=== PATIENT | female | born 1960 | race Caucasian/White ===

== ENCOUNTER → 2017-09-21 | Outpatient (CLI) | payer MEDICAID ==
[~2017-09-21] MED LIST: ALBUTEROL; ALI300PT PO; AMLO1TAB PO; AMLO2.5T75 PO; ASP325 PO; ATR10 PO; CIPR-326 PO; CIPR-344 PO; CITA-128 PO; CLI150 PO; CLO75 PO; CYC10 PO; ENAL20TA99 PO; FLAX100042 PO; FLUC150T40 PO; FOL1 PO; GABA-503 PO; GEMF600T91 PO; GLUC750T10 PO; GLY5 PO; HUMALOG; HYDR-4309 PO; INSU100C12 SQ; INSU100I30 SQ; LAMO100T5 PO; LAMO100T52 PO; LANI SUBQ; LEVO-85 PO; LEVO175T42 PO; LEVO200T44 PO; LOR5 PO; LOR5/325 PO; MELO-149 PO; METF-420 PO; METO-1 PO; METO-257 PO; METO1TAB PO; MULT-820 PO; NIA100 PO; NITR0.4T3 SL; OMEP40CA45 PO; PAN20 PO; PER PO; POTA-28 PO; PRAV20TA66 PO; PREDNISONE; ROS10 FT; SIMV-49 PO; SITA100T9 PO; SPIR1TAB26 PO; SPIR25TA78 PO; VILA20TA PO; VILA40TA PO; [UNRECOGNIZED DRUG - CODE] PO; [UNRECOGNIZED DRUG - CODE] PO; [UNRECOGNIZED DRUG - OTHER]
--- NOTE | 2017-09-21 17:19 | RADIOLOGY IMAGING REPORT ---
[place] [facility] [place] NAME: Thea Snyder : 1960 MR: [id number] V: [id number] EXAM DATE: ORDERING PHYSICIAN: DEACON CAICEDO TECHNOLOGIST: Location: [facility] Patient: Thea Snyder : 1960 Visit/Account:[id number] Date of Sevice: 09/21/2017 EXAMINATION: VENOUS DOPP LOW LEFT EXTREMITY COMPARISON: None Available HISTORY: Left lower extremity pain and edema. FINDINGS: Standard left lower extremity Doppler ultrasound with color flow and spectral analysis is p erformed. The common femoral, femoral, and popliteal veins are widely patent and compress appropriately. The v isualized calf veins and the proximal greater saphenous vein are patent. No popliteal fluid collection. IMPRESSION: No left lower extremity deep venous thrombosis. Report Dictated By: Gordo Reyes MD at 09/21/2017 5:14 PM Report E-Signed By: Gordo Reyes MD at 09/21/2017 5:15 PM WSN:[id number]
== END ==
LOC: US 15:15
PROVIDERS: ATTEND Nurse Practitioner Family
DX: M79.605 Pain in left leg (principal)

== ENCOUNTER 2018-08-29 08:00 | Outpatient (RCR) | payer MEDICAID ==
[2018-06-07 17:09] VITALS: BP 142/84
[2018-06-07 17:12] VITALS: BP 132/80
--- NOTE | 2018-06-08 08:33 | CARDIAC REHAB PLAN OF CARE ---
Physician: Geri TEJEDA Patient is being seen: Walter Oliver Medical Diagnosis: ACS, NSTEMI, PCI, Stent x 4 Date of Initial Evaluation: June 07, 2018 Short Term Goals Due Date: 07/05/18 Short Term Goals: Patient Assessment: Patient is a 58 year old female that comes to cardiac rehab following a NSTEMI with pci, stent x2 on April 06, 2018. Patient is morbidly obese at 5'3", 277 pounds, and prior heart health reveals two previous NSTEMI events with pci stents placed (1998, 2001). Patient is also an insulin dependent diabetic, hx of hypertension, and recently showing early signs of kidney failure, stage III with a creatinine level at 1.3. Patient denies tobacco use, but describes several years of second hand smoke. Patients resting SPO2 level at 88% room air, and drops to 79% room air during exercise, and the early childhood teacher assistant shows a NSR-ST without ectopy and rates of 79-109. Exercise Assessment: During her 6-Minute Walk test she walked a total of 500 feet (0.95 mph), stopping to sit and rest at the 4 minutes and 30 second kye and couldn't return to walking prior to the 6 minute finish time. SPO2 levels dropped to 79% on room air, and the early childhood teacher assistant showed a NSR-ST without ectopy and rates of 89-109. Exercise Plan: Goals: Goals will be to determine cardiovascular safety and the starting point will be at a THR zone of 55-65% of her age predicted max (90-106), followed by weight resistance with 4-5 pound dumbbells. Exercise Prescription: Mode: NuStep and treadmill Frequency: 3 days / week (MWF) Duration: 20+ minutes Intensity: THR 90-106bpm pending normal hemodynamic response Education: Education will be to establish this starting point and make steady progress especially with her ability to walk since that will be her choice of exercise to continue on after the phase II program. Exercise Reassessment (Date: ): Exercise Discharge/Follow-Up (Date: ): Nutrition Assessment: Patient reports eating primarily according to a diabetic diet plan, however her knowledge of her diet does appear to be skewed and could use some intervention. She eats primarily for conveniencereporting limited ability to consistently get healthy foods. She eats lean meats and easily accessible grains and vegetables. Nutrition Plan: Goals: Goals will be to first develop some ideas to purchase the healthiest foods with the least amount of cos. The patient has also set the goal to lose weight. Intervention: To help plan her trips to [place] and make the best use of limited money to purchase the healthiest, least expensive foods. Education: Education will focus on healthy recipes that do not require much preparationwith emphasis on vegetables and whole grains. Nutrition Reassessment (Date: ): Nutrition Discharge/Follow-Up (Date: ): Psychosocial Assessment: Patient scored poorly on the HADS test, and has a history of depression currently treated with medication and she also goes to regular counseling sessions. Patient is diagnosed with Dissociative Identity Disorder. Psychosocial Plan: Goals: Our first goal is to help instill self confidence in the patient that we are all on the same health care team and will provide our effort to make positive steps in rehab and better health with the awareness that any given day may not be the best day for the patient. Intervention: Our intervention will be to provide a safe and healthy learning and exercise environment. She does not receive much social interaction, so this will be her primary social contact during the week and it needs to remain involved and positive. Education: Education will focus on the importance of psychological stress management and how it can improve overall quality of life and cardiovascular health. Physician Signature: Date: MTDD
--- NOTE | 2018-06-08 16:53 | CARDIAC REHAB PLAN OF CARE ---
Physician: Geri TEJEDA Patient is being seen: Walter Oliver Medical Diagnosis: ACS, NSTEMI, PCI, Stent x 4 Date of Initial Evaluation: June 07, 2018 Short Term Goals Due Date: 07/05/18 Short Term Goals: Patient Assessment: Patient is a 58 year old female that comes to cardiac rehab following a NSTEMI with pci, stent x2 on April 06, 2018. Patient is morbidly obese at 5'3", 277 pounds, and prior heart health reveals two previous NSTEMI events with PCI stents placed (1998, 2001). Patient is also an insulin dependent diabetic, hx of hypertension, and recently showing early signs of kidney failure, stage III with a creatinine level at 1.3. Patient denies tobacco use, but describes several years of second hand smoke. Patients resting SPO2 level at 88% room air, and drops to 79% room air during exercise, and the monitor tech shows a NSR-ST without ectopy and rates of 79-109. Exercise Assessment: During her 6-Minute Walk test she walked a total of 500 feet (0.95 mph), stopping to sit and rest at the 4 minutes and 30 second kye and couldn't return to walking prior to the 6 minute finish time. SPO2 levels dropped to 79% on room air, and the monitor tech showed a NSR-ST without ectopy and rates of 89-109. Exercise Plan: Goals: Goals will be to determine cardiovascular safety and the starting point will be at a THR zone of 55-65% of her age predicted max (90-106), and make steady progress by adding duration and intensity. Exercise Prescription: Patient will start with NuStep at 4 resistance for 15-20 minutes as tolerated then treadmill walking with a starting point of 5 minutes and add minutes as tolerated. Weight resistance with 4-5 pound dumbbells. Mode: NuStep and treadmill, dumbbell weights. Frequency: 3 days / week (MWF) Duration: 20+ minutes Intensity: THR 90-106bpm pending normal hemodynamic response Education: Education will be to establish this starting point and make steady progress especially with her ability to walk since that will be her choice of exercise to continue on after the phase II program. Exercise Reassessment (Date: ): Exercise Discharge/Follow-Up (Date: ): Nutrition Assessment: Patient reports eating primarily according to a diabetic diet plan, however her knowledge of her diet does appear to be skewed and could use some intervention. She eats primarily for conveniencereporting limited ability to consistently get healthy foods. She eats lean meats and easily accessible grains and vegetables. Nutrition Plan: Goals: Goals will be to first develop some ideas to purchase the healthiest foods with the least amount of cos. The patient has also set the goal to lose weight. Intervention: To help plan her trips to [place] and make the best use of limited money to purchase the healthiest, least expensive foods. Education: Education will focus on healthy recipes that do not require much preparationwith emphasis on vegetables and whole grains. Nutrition Reassessment (Date: ): Nutrition Discharge/Follow-Up (Date: ): Psychosocial Assessment: Patient scored poorly on the HADS test, and has a history of depression currently treated with medication and she also goes to regular counseling sessions. Patient is diagnosed with Dissociative Identity Disorder. Psychosocial Plan: Goals: Our first goal is to help instill self confidence in the patient that we are all on the same health care team and will provide our effort to make positive steps in rehab and better health with the awareness that any given day may not be the best day for the patient. Intervention: Our intervention will be to provide a safe and healthy learning and exercise environment. She does not receive much social interaction, so this will be her primary social contact during the week and it needs to remain involved and positive. Education: Education will focus on the importance of psychological stress management and how it can improve overall quality of life and cardiovascular health. Physician Signature: Date: MTDD
[2018-06-13 13:46] VITALS: BP 152/88
[2018-06-13 13:47] VITALS: BP 160/100
[2018-06-15 18:07] VITALS: BP 152/96
[2018-06-15 18:08] VITALS: BP 172/82
[2018-06-20 12:46] VITALS: BP 160/84
[2018-06-20 12:47] VITALS: BP 160/90
[2018-06-22 12:44] VITALS: BP 162/88
[2018-06-22 12:45] VITALS: BP 156/88
[2018-06-24 16:43] VITALS: BP 162/86
[2018-06-24 16:45] VITALS: BP 160/86
[2018-06-27 13:26] VITALS: BP 164/82
[2018-06-27 13:28] VITALS: BP 164/76
[2018-06-29 17:17] VITALS: BP 160/92
[2018-06-29 17:19] VITALS: BP 164/86
[2018-07-01 12:56] VITALS: BP 178/84
[2018-07-01 12:57] VITALS: BP 156/82
[2018-07-06 12:50] VITALS: BP 164/88
[2018-07-06 12:53] VITALS: BP 158/78
[2018-07-08 17:44] VITALS: BP 162/82
[2018-07-08 17:55] VITALS: BP 142/82
--- NOTE | 2018-07-09 11:19 | CARDIAC REHAB PLAN OF CARE ---
Physician: Mohamud LOPEZ Patient is being seen: Walter Oliver Medical Diagnosis: ACS, PCI, Stent x 4, NSTEMI Date of Initial Evaluation: June 07, 2018 Short Term Goals Due Date: 08/09/18 Short Term Goals: Patient Assessment: Patient is a 58 year old female that comes to cardiac rehab following a NSTEMI with pci, stent x2 on April 06, 2018. Patient is morbidly obese at 5'3", 277 pounds, and prior heart health reveals two previous NSTEMI events with pci stents placed (1998, 2001). Patient is also an insulin dependent diabetic, hx of hypertension, and recently showing early signs of kidney failure, stage III with a creatinine level at 1.3. Patient denies tobacco use, but describes several years of second hand smoke. Patients resting SPO2 level at 88% room air, and drops to 79% room air during exercise, and the cardiac rehabilitation program director shows a NSR-ST without ectopy and rates of 79-109. Exercise Assessment: During her 6-Minute Walk test she walked a total of 500 feet (0.95 mph), stopping to sit and rest at the 4 minutes and 30 second kye and couldn't return to walking prior to the 6 minute finish time. SPO2 levels dropped to 79% on room air, and the cardiac rehabilitation program director showed a NSR-ST without ectopy and rates of 89-109. Exercise Plan: Goals: Goals will be to determine cardiovascular safety and the starting point will be at a THR zone of 55-65% of her age predicted max (90-106), followed by weight resistance with 4-5 pound dumbbells. Exercise Prescription: Mode: NuStep and treadmill Frequency: 3 days / week (MWF) Duration: 20+ minutes Intensity: THR 90-106bpm pending normal hemodynamic response Education: Education will be to establish this starting point and make steady progress especially with her ability to walk since that will be her choice of exercise to continue on after the phase II program. Exercise Reassessment (Date: 07/09/2018): Patient has made 11 total visits to cardiac rehab and completes 40 minutes on the NuStep. During exercise SPO2 levels are maintained in the 90's on 4 liters of O2 by cannula, and the cardiac rehabilitation program director shows NSR without ectopy and rates of 74-97, achieving THR. Patient has opted to complete weight resistance at home. To be able to reach her goals we need to also have her walk some laps. Exercise Discharge/Follow-Up (Date: ): Nutrition Assessment: Patient reports eating primarily according to a diabetic diet plan, however her knowledge of her diet does appear to be skewed and could use some intervention. She eats primarily for conveniencereporting limited ability to consistly get healthy foods. She eats lean meats and easily accessible grains and vegetables. Nutrition Plan: Goals: Goals will be to first develop some ideas to purchase the healthiest foods with the least amount of cos. The patient has also set the goal to lose weight. Intervention: To help plan her trips to [place] and make the best use of limited money to purchase the healthiest, least expensive foods. Education: Education will focus on healthy recipes that do not require much preparationwith emphasis on vegetables and whole grains. Nutrition Reassessment (Date:07/09/2018):Patients ability to access and purchase healthy foods is limited to trips to [place] from [place], and ability to store and prepare foods also limited by living in a camper. Patient's weight remains at 275 pound range. Nutrition Discharge/Follow-Up (Date: ): Psychosocial Assessment: Patient scored poorly on the HADS test, and has a history of depression currently treated with medication and she also goes to regular counseling sessions. Patient is diagnosed with Dissociative Identity Disorder. Psychosocial Plan: Goals: Our first goal is to help instill self confidence in the patient that we are all on the same health care team and will provide our effort to make positive steps in rehab and better health with the awareness that any given day may not be the best day for the patient. Intervention: Our intervention will be to provide a safe and healthy learning and exercise environment. She does not receive much social interaction, so this will be her primary social contact during the week and it needs to remain involved and positive. Education: Education will focus on the importance of psychological stress management and how it can improve overall quality of life and cardiovascular health. (07/09/2018): Patients is pleasant and upbeat during visits to cardiac rehab, and reports she is still going to counsiling. Physician Signature: Date: MTDD
[2018-07-11 17:10] VITALS: BP 170/90
[2018-07-11 17:12] VITALS: BP 178/92
[2018-07-22 17:02] VITALS: BP 162/82
[2018-07-22 17:03] VITALS: BP 160/82
[2018-07-25 17:26] VITALS: BP 160/90
[2018-07-25 17:27] VITALS: BP 160/80
[2018-07-29 13:03] VITALS: BP 164/82
[2018-07-29 13:04] VITALS: BP 140/82
[2018-08-01 12:58] VITALS: BP 178/86
[2018-08-01 12:59] VITALS: BP 165/82
[2018-08-03 12:47] VITALS: BP 178/88
[2018-08-03 12:48] VITALS: BP 172/86
[2018-08-06 13:32] VITALS: BP 152/92
[2018-08-06 13:33] VITALS: BP 157/86
[2018-08-08 19:12] VITALS: BP 160/85
[2018-08-08 19:13] VITALS: BP 158/90
[2018-08-10 17:07] VITALS: BP 164/86
[2018-08-10 17:08] VITALS: BP 158/90
--- NOTE | 2018-08-21 09:19 | CARDIAC REHAB PLAN OF CARE ---
Physician: Geri TEJEDA Patient is being seen: Walter Oliver Medical Diagnosis: ACS, NSTEMI, PCI stent x 4 Date of Initial Evaluation: 06/07/2018 Short Term Goals Due Date: 09/16/18 Short Term Goals: Patient Assessment: Patient is a 58 year old female that comes to cardiac rehab following a NSTEMI with pci, stent x2 on April 06, 2018. Patient is morbidly obese at 5'3", 277 pounds, and prior heart health reveals two previous NSTEMI events with pci stents placed (1998, 2001). Patient is also an insulin dependent diabetic, hx of hypertension, and recently showing early signs of kidney failure, stage III with a creatinine level at 1.3. Patient denies tobacco use, but describes several years of second hand smoke. Patients resting SPO2 level at 88% room air, and drops to 79% room air during exercise, and the traffic monitor specialist shows a NSR-ST without ectopy and rates of 79-109. Exercise Assessment: During her 6-Minute Walk test she walked a total of 500 feet (0.95 mph), stopping to sit and rest at the 4 minutes and 30 second kye and couldn't return to walking prior to the 6 minute finish time. SPO2 levels dropped to 79% on room air, and the traffic monitor specialist showed a NSR-ST without ectopy and rates of 89-109. Exercise Plan: Goals: Goals will be to determine cardiovascular safety and the starting point will be at a THR zone of 55-65% of her age predicted max (90-106), followed by weight resistance with 4-5 pound dumbbells. Exercise Prescription: Mode: NuStep and treadmill Frequency: 3 days / week (MWF) Duration: 20+ minutes Intensity: THR 90-106bpm pending normal hemodynamic response Education: Education will be to establish this starting point and make steady progress especially with her ability to walk since that will be her choice of exercise to continue on after the phase II program. Exercise Reassessment (Date: 07/09/2018): Patient has made 11 total visits to cardiac rehab and completes 40 minutes on the NuStep. During exercise SPO2 levels are maintained in the 90's on 4 liters of O2 by cannula, and the traffic monitor specialist shows NSR without ectopy and rates of 74-97, achieving THR. Patient has opted to complete weight resistance at home. To be able to reach her goals we need to also have her walk some laps. As of August 08, 2018 the patient has made a total of 19 visits to cardiac and rehab. Initial progress has now leveled off in duration with a total of 30-40 minutes on the NuStep with intensity increased and the introduction of HIIT to challenge her to achieve a Hard to Very Hard on the RPE scale for 30 seconds and then back it down to a recovery level for the next minute and half. The patient will also walk a few laps on the track to not only help with conditioning and improving heart health, but to also achieve a goal she had set of walking and also to get her ready for her post program exercise routine of walking as her means of continuing to exercise after the phase II program is over. During exercise the patient maintains SPO2 levels of 90's on 4 liters of O2 and the traffic monitor specialist shows a NSR-ST without ectopy and rates achieving THR of 90-106. Her BP readings have improved, but remain a concern with pre and post exercise systolic readings in the 150-167 range, and diastolic readings in the 80-94 range. Exercise Discharge/Follow-Up (Date: ): Nutrition Assessment: Patient reports eating primarily according to a diabetic diet plan, however her knowledge of her diet does appear to be skewed and could use some intervention. She eats primarily for conveniencereporting limited ability to consistently get healthy foods. She eats lean meats and easily accessible grains and vegetables. Nutrition Plan: Goals: Goals will be to first develop some ideas to purchase the healthiest foods with the least amount of cos. The patient has also set the goal to lose weight. Intervention: To help plan her trips to [place] and make the best use of limited money to purchase the healthiest, least expesive foods. Education: Education will focus on healthy recipes that do not require much preparationwith emphasis on vegetables and whole grains. Nutrition Reassessment (Date:07/09/2018):Patients ability to access and purchase healthy foods is limited to trips to [place] from [place], and ability to store and prepare foods also limited by living in a camper. Patient's weight remains at 275 pound range. Patient's ability to make any changes in dietary changes are still limited by availablility, finances, and living conditions. The only real change she can make in this area is focused on portion control. Patient reports occasional small weight loss, but still is in the range around her initial program start weight weight of 277 pounds. Nutrition Discharge/Follow-Up (Date: ): Psychosocial Assessment: Patient scored poorly on the HADS test, and has a history of depression currently treated with medication and she also goes to regular counsiling sessions. Patient is diagnosed with Dissociative Identity Disorder. Psychosocial Plan: Goals: Our first goal is to help instill self confidence in the patient that we are all on the same health care team and will provide our effort to make positive steps in rehab and better health with the awareness that any given day may not be the best day for the patient. Intervention: Our intervention will be to provide a safe and healthy learning and exercise environment. She does not receive much social interaction, so this will be her primary social contact during the week and it needs to remain involved and positive. Education: Education will focus on the importance of psychological stress management and how it can improve overall quality of life and cardiovascular health. (07/09/2018): Patients is pleasant and upbeat during visits to cardiac rehab, and reports she is still going to counseling. (08/19/18): Patient remains upbeat and positive during visits to cardiac rehab. She reports being motivated by feeling better and her improvements of exercise during the phase II program. She is still going to counseling and I also believe her visits to her provider (Geri TEJEDA) are a positive experience for her. Physician Signature: Date: SCARLETTD
[2018-08-24 18:15] VITALS: BP 160/82
[2018-08-24 18:16] VITALS: BP 162/86
[2018-08-26 13:33] VITALS: BP 150/90
[2018-08-26 13:35] VITALS: BP 148/84
[~2018-08-29 08:00] MED LIST changes: -GABA-503 PO; +GABA-533 PO; -HYDR-4309 PO; +HYDR-653 PO; -ROS10 FT; +ROSU10TA FT; -SPIR25TA78 PO; +SPIR25TA80 PO
[2018-08-29 12:48] VITALS: BP 164/90
[2018-08-29 12:49] VITALS: BP 166/84
== END 2018-09-05 ==
LOC: CARD 08:00
PROVIDERS: ATTEND Internal Medicine Cardiovascular Disease
DX: I25.2 Old myocardial infarction (principal); Z95.5 Presence of coronary angioplasty implant and graft; I25.10 Atherosclerotic heart disease of native coronary artery without angina pectoris; E66.9 Obesity, unspecified; G62.9 Polyneuropathy, unspecified; F44.81 Dissociative identity disorder; I10 Essential (primary) hypertension; E11.40 Type 2 diabetes mellitus with diabetic neuropathy, unspecified
CPT/HCPCS: 93798

== ENCOUNTER 2018-09-29 13:24 | Emergency (ER) | payer MEDICAID ==
[~2018-09-29 13:24] MED LIST changes: -ASPI-1017 PO; -ASPI81TA94 PO; -ATOR40TA24 PO; -CARV25TA78 PO; -CLOP75TA PO; -EZET10TA41 PO; -FENO160T11 PO; -GABA-549 PO; -GLUC1TAB13 PO; -INSU100V24 SQ; -KRIL500C2 PO; -LAMO150T36 PO; -LEVO-3 PO; -LEVO75TA73 PO; -LOSA100T75 PO; -MULT-1335 PO
--- NOTE | 2018-09-29 13:31 | ER Report ---
History and Physical Time Seen By MD: 13:31 HPI/ROS CHIEF COMPLAINT: Weakness and confusion HISTORY OF PRESENT ILLNESS: This is a 58-year-old female who presents to the emergency department for weakness and confusion. Patient is a type I diabetic, history of myocardial infarction, large BMI. States when she woke this morning at around 4:00 she was too weak in her extremities to pull herself up out of bed, she was able to get up, had a nontraumatic fall, where she laid on the ground, she did fall asleep, she did wake, fell asleep one more time, when she was unable to get up a 2nd time her family called EMS at 11:30. Denies hitting her head. She also noted that she had edema around her lips and orbits, she does not feel as though her airway is compromised however she does have some shortness of breath. She does wear CPAP at night. EMS noted her SPO2 upon arrival to be around 80%. She's had no recent injuries. She does state that her blood sugars have been relatively well controlled recently less than 200. She denies nausea or vomiting. Denies chest pain. She noted her urine to be very dark and concentrated, last bowel movement was yesterday as well, she did strain to have a bowel movement. She denies headaches. She was started on enalapril in April. REVIEW OF SYSTEMS: Constitutional: No fever, no chills. Eyes: As above. ENT: No sore throat. Cardiovascular: No chest pain, no palpitations. Respiratory: As above. Gastrointestinal: As above. Genitourinary: As above. Musculoskeletal: As above. Skin: No rashes. Neurological: As above. Allergies: Coded Allergies: Penicillins (Verified Allergy, Mild, 07/27/16) diphenhydramine (Verified Allergy, Mild, CONVULSIONS, 07/27/16) egg (Verified Allergy, Mild, HIVES, 07/27/16) morphine (Verified Allergy, Mild, DOESN'T WORK, CAUSES HEADACHE, 07/27/16) Uncoded Allergies: NUTS (Allergy, Mild, 02/18/11) Home Meds Active Scripts Nitroglycerin (NITROGLYCERIN) 0.4 Mg Tab.subl, 0.4 MG SL Q5MIN, #20 Prov:NABEEL CASTILLO MD 07/04/14 Reported Medications Vilazodone Hydrochloride (VIIBRYD) 40 Mg Tablet, 40 MG PO QAM 09/29/18 Glucosamine Hcl/Ch[place]r Huerta A Na (OSTEO BI-FLEX CAPLET) 1 Each Tablet, 1 EACH PO BID 09/29/18 Multivitamin With Minerals (MULTIPLE VITAMIN) 1 Each Tablet, 1 EACH PO QDAY, TAB 09/29/18 Losartan Potassium (LOSARTAN POTASSIUM) 100 Mg Tablet, 100 MG PO QDAY 09/29/18 Levothyroxine Sodium (LEVOTHYROXINE SODIUM) 100 Mcg Tablet, 100 MCG PO QDAY, TAB 09/29/18 Levothyroxine Sodium (LEVOTHYROXINE SODIUM) 75 Mcg Tablet, 75 MCG PO QDAY, TAB 09/29/18 Insulin Glargine 100 Un/Ml Pen (LANTUS SOLOSTAR PEN) 100 Unit/1 Ml Insuln.pen, 7 0 UNIT SQ QPM, PEN 09/29/18 Insulin Glargine 100 Un/Ml Pen (LANTUS SOLOSTAR PEN) 100 Unit/1 Ml Insuln.pen, 40 UNIT SQ QAM, PEN 09/29/18 Lamotrigine (LAMOTRIGINE) 150 Mg Tablet, 150 MG PO BID 09/29/18 Krill Oil (KRILL OIL) 500 Mg Capsule, 500 MG PO QDAY, CAPSULE 09/29/18 Insulin Lispro 100 Un/Ml Vial (HUMALOG 100 U/ML VIAL) 100 Unit/1 Ml Vial, 1-100 UNIT SQ PRN, VIAL 09/29/18 Gabapentin (GABAPENTIN) 300 Mg Capsule, 600 MG PO TID, CAPSULE 09/29/18 Fenofibrate (FENOFIBRATE) 160 Mg Tablet, 160 MG PO QDAY 09/29/18 Carvedilol (CARVEDILOL) 25 Mg Tablet, 2 TAB PO BID, #10 TAB 09/29/18 Ezetimibe (ZETIA) 10 Mg Tablet, 10 MG PO QDAY, TAB 09/29/18 Clopidogrel Bisulfate (CLOPIDOGREL) 75 Mg Tablet, 1 TAB PO QDAY, TAB 09/29/18 Aspirin/Caffeine (DEAN BACK & BODY CAPLET) 1 Each Tablet, 1 EACH PO QAM 09/29/18 Atorvastatin Calcium (LIPITOR) 40 Mg Tablet, 2 TAB PO QHS, TAB 09/29/18 Aspirin (ASPIRIN) 81 Mg Tab.chew, 81 MG PO QDAY, TAB.CHEW 09/29/18 Discontinued Reported Medications Lamotrigine (LAMOTRIGINE) 100 Mg Tablet, 100 MG PO BID 09/25/16 Vilazodone Hydrochloride (VIIBRYD) 40 Mg Tablet, 1 TAB PO QAM 08/06/16 Glucosamine Sulfate (Glucosamine) 750 Mg Tablet, 750 MG PO BID, 0 Refills 03/28/10 Vitamin E (Vitamin E) 1,000 Unit Capsule, 1000 UNIT PO DAILY, 0 Refills 03/28/10 Aspirin (Aspirin) 325 Mg Tab, 325 MG PO QDAY, 0 Refills 03/28/10 Discontinued Scripts [Humalog] (Humalog) VIAL No Conflict Check, TID, #5 VIAL 6 Refills SLIDING SCALE 100 150 4 units 151-200 6 units 201-250 8 units 251-300 10 units 301-350 12 units 351-400 14 units More than 400 call M.D. Prov:ROLANDO ARIZA MD 09/25/16 Insulin Glargine 100 Un/Ml Pen (LANTUS SOLOSTAR PEN) 100 Unit/1 Ml Insuln.pen, 62 UNIT SQ BID, #2 BOX 3 Refills add 2 units every 3 days until FBS 120 or less Prov:ROLANDO ARIZA MD 09/25/16 Spironolactone (SPIRONOLACTONE) 25 Mg Tablet, 1 TAB PO BID, #180 TAB 1 Refill Prov:ROLANDO ARIZA MD 08/31/16 Metoprolol Tartrate (METOPROLOL TARTRATE) 100 Mg Tablet, 1 TAB PO BID, #180 TAB 1 Refill Prov:ROLANDO ARIZA MD 08/31/16 Levothyroxine Sodium (LEVOTHYROXINE SODIUM) 175 Mcg Tablet, 1 TAB PO QDAY, #90 TAB 1 Refill Prov:ROLANDO ARIZA MD 08/31/16 Gabapentin (GABAPENTIN) 600 Mg Tablet, 1 TAB PO BID, #180 TAB 1 Refill Prov:ROLANDO ARIZA MD 08/31/16 Enalapril Maleate (ENALAPRIL MALEATE) 20 Mg Tablet, 2 TAB PO QDAY, #180 TAB 1 Refill Prov:ROLANDO ARIZA MD 08/31/16 Rosuvastatin Calcium (CRESTOR) 10 Mg Tab, 10 MG FT QDAY for 30 Days, #30 TAB 4 Refills Prov:ROLANDO ARIZA MD 08/20/16 Past Medical/Surgical History The patient has a past medical and surgical history of 3 separate an STEMI's, hypertension, pneumonia requiring hospitalization, COPD, exposure to secondhand smoke, GERD, 3 large masses in uterus and ovaries, morbidly obese, diabetic type I with neuropathy, left wrist surgery, hypothyroidism, dissociative identity di sorder, 3 C-sections, PCI stent placement 6 stents, left wrist surgery, ruptured tubal . Reviewed Nurses Notes: Yes Hx Smoking: No Smoking Status: Never Smoker Hx Substance Use Disorder: No Hx Alcohol Use: No Constitutional Vital Sign - Last 24 Hours 09/29/18 09/29/18 09/29/18 09/29/18 13:32 13:35 13:39 13:50 Temp 99.2 Pulse 86 86 Resp 18 17 B/P (MAP) 132/74 132/74 (93) Pulse Ox 94 93 O2 Delivery Oxy Mask O2 Flow Rate 10.0 09/29/18 09/29/18 09/29/18 09/29/18 13:54 14:00 14:09 14:14 Pulse 82 83 84 Resp 21 19 17 B/P (MAP) 137/65 (89) Pulse Ox 91 91 91 09/29/18 09/29/18 09/29/18 09/29/18 14:19 14:24 14:29 14:30 Pulse 84 83 83 Resp 17 18 16 B/P (MAP) 138/79 (98) Pulse Ox 92 92 94 09/29/18 09/29/18 09/29/18 09/29/18 14:34 15:09 15:14 15:19 Pulse 83 81 80 83 Resp 18 30 23 15 Pulse Ox 88 94 95 90 09/29/18 09/29/18 09/29/18 09/29/18 15:24 15:29 15:34 15:39 Pulse 80 82 82 81 Resp 18 16 16 14 Pulse Ox 96 97 95 95 09/29/18 09/29/18 09/29/18 09/29/18 15:44 15:49 15:54 15:56 Pulse ??? 86 82 Resp 11 13 19 B/P (MAP) 136/79 (98) Pulse Ox 100 95 92 09/29/18 09/29/18 09/29/18 09/29/18 16:00 16:04 16:09 16:14 Pulse 79 79 78 Resp 17 7 15 B/P (MAP) 128/74 (92) Pulse Ox 96 94 95 09/29/18 09/29/18 09/29/18 09/29/18 16:19 16:24 16:29 16:30 Pulse 114 ??? 79 Resp 21 12 9 B/P (MAP) 131/74 (93) Pulse Ox 85 94 94 09/29/18 09/29/18 09/29/18 09/29/18 16:34 16:39 16:44 16:49 Pulse 78 77 77 ??? Resp 0 Pulse Ox 94 94 92 92 09/29/18 09/29/18 09/29/18 09/29/18 16:54 16:59 17:00 17:04 Pulse 76 76 77 Resp 9 13 15 B/P (MAP) 143/78 (99) Pulse Ox 93 93 09/29/18 09/29/18 09/29/18 09/29/18 17:09 17:14 17:19 17:24 Pulse 78 75 78 75 Resp 12 18 15 13 09/29/18 09/29/18 09/29/18 17:29 17:30 17:34 Pulse 78 74 Resp 15 33 B/P (MAP) 116/73 (87) Pulse Ox 92 94 Physical Exam General Appearance: The patient is alert, has no immediate need for airway protection and no signs of toxicity. Eyes: Pupils equal and round no pallor or injection. ENT, Mouth: Mucous membranes are moist. Respiratory: There are no retractions, diminished in bases otherwise lungs are clear to auscultation. Cardiovascular: Regular rate and rhythm. Systolic murmur when one left side, no clicks or rubs. Gastrointestinal: Abdomen is obese, moderately firm with mild tenderness in all quadrants, hypoactive bowel sounds. Neurological: Alert and oriented 4. Moving all extremities. Following all commands. No focal neuro deficits. Skin: Warm and dry, no rashes. Musculoskeletal: Neck is supple non tender. Extremities are nontender, nonswollen and have full range of motion. DIFFERENTIAL DIAGNOSIS: After history and physical exam differential diagnosis was considered for shortness of breath including but not limited to pulmonary infectious process, COPD, myocardial infarction, asthma, pulmonary embolus and congestive heart failure. Medical Decision Making Data Points Result Diagram: 09/29/18 1250 09/29/18 1250 Laboratory Hematology Test 09/29/18 00:00 09/29/18 12:50 09/29/18 13:57 09/29/18 14:44 Erythrocyte Sedimentation Rate 7 mm/HOUR (0-30) Lactate 1.5 mmol/L (0.7-2.1) Red Blood Count 4.51 M/uL (4.17-5.56) Mean Corpuscular Volume 91.7 fL (80.0-96.0) Mean Corpuscular Hemoglobin 30.8 pg (26.0-33.0) Mean Corpuscular Hemoglobin Concent 33.6 g/dL (32.0-36.0) Red Cell Distribution Width 14.2 % (11.5-14.5) Mean Platelet Volume 8.1 fL (7.2-11.1) Neutrophils (%) (Auto) 88.5 % (39.4-72.5) Lymphocytes (%) (Auto) 4.2 % (17.6-49.6) Monocytes (%) (Auto) 6.6 % (4.1-12.4) Eosinophils (%) (Auto) 0.1 % (0.4-6.7) Basophils (%) (Auto) 0.6 % (0.3-1.4) Nucleated RBC Relative Count (auto) 0.1 /100WBC Neutrophils # (Auto) 11.2 K/uL (2.0-7.4) Lymphocytes # (Auto) 0.5 K/uL (1.3-3.6) Monocytes # (Auto) 0.8 K/uL (0.3-1.0) Eosinophils # (Auto) 0.0 K/uL (0.0-0.5) Basophils # (Auto) 0.1 K/uL (0.0-0.1) Nucleated RBC Absolute Count (auto) 0.01 K/uL Prothrombin Time 14.4 seconds (12.0-14.4) Prothromb Time International Ratio 1.11 Activated Partial Thromboplast Time 32 seconds (23-35) D-Dimer Quantitative (PE/DVT) 0.59 ug/ml (0-0.50) Sodium Level 134 mmol/L (137-145) Potassium Level 3.8 mmol/L (3.5-5.0) Chloride Level 96 mmol/L (98-107) Carbon Dioxide Level 28 mmol/L (22-31) Blood Urea Nitrogen 23 mg/dl (7-18) Creatinine 1.20 mg/dl (0.52-1.04) Glomerular Filtration Rate Calc 46.3 Random Glucose 252 mg/dl (75-110) Calcium Level 9.8 mg/dl (8.4-10.2) Magnesium Level 1.3 mg/dl (1.7-2.2) Total Bilirubin 1.0 mg/dl (0.2-1.3) Aspartate Amino Transf (AST/SGOT) 27 U/L (0-35) Alanine Aminotransferase (ALT/SGPT) 17 U/L (0-56) Alkaline Phosphatase 37 U/L (0-126) Ammonia 12 UMOL/L (9-33) B-Type Natriuretic Peptide 255 pg/ml (0-100) Total Protein 7.1 g/dl (6.3-8.2) Albumin 4.3 g/dl (3.5-5.0) Serum Alcohol < 10 mg/dl Carboxyhemoglobin 1.3 % (< 5.0) Urine Color Yellow Urine Clarity Cloudy Urine pH 6.0 pH (4.8-9.5) Urine Specific [place] 1.023 Urine Protein 100 mg/dL (NEGATIVE) Urine Glucose (UA) 50 mg/dL (NEGATIVE) Urine Ketones Negative mg/dL (NEGATIVE) Urine Blood Small (NEGATIVE) Urine Nitrite Negative (NEGATIVE) Urine Bilirubin Negative (NEGATIVE) Urine Urobilinogen Negative mg/dL (0.2-1.9) Urine Leukocyte Esterase Large (NEGATIVE) Urine RBC 31 /HPF (0-2/HPF) Urine WBC 169 /HPF (0-5/HPF) Urine Squamous Epithelial Cells None /LPF (</=FEW) Urine Amorphous Crystals Few /HPF Urine Bacteria Negative /HPF (NONE-FEW) Urine Mucus None /HPF (NONE-FEW) Urine Yeast (Budding) Moderate /HPF Test 09/29/18 16:30 Troponin I 0.160 ng/ml Chemistry Test 09/29/18 00:00 09/29/18 12:50 09/29/18 13:57 09/29/18 14:44 Erythrocyte Sedimentation Rate 7 mm/HOUR (0-30) Lactate 1.5 mmol/L (0.7-2.1) White Blood Count 12.7 k/uL (4.5-11.0) Red Blood Count 4.51 M/uL (4.17-5.56) Hemoglobin 13.9 g/dL (12.0-16.0) Hematocrit 41.4 % (34.0-47.0) Mean Corpuscular Volume 91.7 fL (80.0-96.0) Mean Corpuscular Hemoglobin 30.8 pg (26.0-33.0) Mean Corpuscular Hemoglobin Concent 33.6 g/dL (32.0-36.0) Red Cell Distribution Width 14.2 % (11.5-14.5) Platelet Count 246 K/uL (150-450) Mean Platelet Volume 8.1 fL (7.2-11.1) Neutrophils (%) (Auto) 88.5 % (39.4-72.5) Lymphocytes (%) (Auto) 4.2 % (17.6-49.6) Monocytes (%) (Auto) 6.6 % (4.1-12.4) Eosinophils (%) (Auto) 0.1 % (0.4-6.7) Basophils (%) (Auto) 0.6 % (0.3-1.4) Nucleated RBC Relative Count (auto) 0.1 /100WBC Neutrophils # (Auto) 11.2 K/uL (2.0-7.4) Lymphocytes # (Auto) 0.5 K/uL (1.3-3.6) Monocytes # (Auto) 0.8 K/uL (0.3-1.0) Eosinophils # (Auto) 0.0 K/uL (0.0-0.5) Basophils # (Auto) 0.1 K/uL (0.0-0.1) Nucleated RBC Absolute Count (auto) 0.01 K/uL Prothrombin Time 14.4 seconds (12.0-14.4) Prothromb Time International Ratio 1.11 Activated Partial Thromboplast Time 32 seconds (23-35) D-Dimer Quantitative (PE/DVT) 0.59 ug/ml (0-0.50) Glomerular Filtration Rate Calc 46.3 Calcium Level 9.8 mg/dl (8.4-10.2) Magnesium Level 1.3 mg/dl (1.7-2.2) Total Bilirubin 1.0 mg/dl (0.2-1.3) Aspartate Amino Transf (AST/SGOT) 27 U/L (0-35) Alanine Aminotransferase (ALT/SGPT) 17 U/L (0-56) Alkaline Phosphatase 37 U/L (0-126) Ammonia 12 UMOL/L (9-33) B-Type Natriuretic Peptide 255 pg/ml (0-100) Total Protein 7.1 g/dl (6.3-8.2) Albumin 4.3 g/dl (3.5-5.0) Serum Alcohol < 10 mg/dl Carboxyhemoglobin 1.3 % (< 5.0) Urine Color Yellow Urine Clarity Cloudy Urine pH 6.0 pH (4.8-9.5) Urine Specific [place] 1.023 Urine Protein 100 mg/dL (NEGATIVE) Urine Glucose (UA) 50 mg/dL (NEGATIVE) Urine Ketones Negative mg/dL (NEGATIVE) Urine Blood Small (NEGATIVE) Urine Nitrite Negative (NEGATIVE) Urine Bilirubin Negative (NEGATIVE) Urine Urobilinogen Negative mg/dL (0.2-1.9) Urine Leukocyte Esterase Large (NEGATIVE) Urine RBC 31 /HPF (0-2/HPF) Urine WBC 169 /HPF (0-5/HPF) Urine Squamous Epithelial Cells None /LPF (</=FEW) Urine Amorphous Crystals Few /HPF Urine Bacteria Negative /HPF (NONE-FEW) Urine Mucus None /HPF (NONE-FEW) Urine Yeast (Budding) Moderate /HPF Test 09/29/18 16:30 Troponin I 0.160 ng/ml Coagulation Test 09/29/18 12:50 Prothrombin Time 14.4 seconds Prothromb Time International Ratio 1.11 Activated Partial Thromboplast Time 32 seconds D-Dimer Quantitative (PE/DVT) 0.59 ug/ml Toxicology Test 09/29/18 12:50 Serum Alcohol < 10 mg/dl Urinalysis Test 09/29/18 14:44 Urine Color Yellow Urine Clarity Cloudy Urine pH 6.0 pH (4.8-9.5) Urine Specific [place] 1.023 Urine Protein 100 mg/dL (NEGATIVE) Urine Glucose (UA) 50 mg/dL (NEGATIVE) Urine Ketones Negative mg/dL (NEGATIVE) Urine Blood Small (NEGATIVE) Urine Nitrite Negative (NEGATIVE) Urine Bilirubin Negative (NEGATIVE) Urine Urobilinogen Negative mg/dL (0.2-1.9) Urine Leukocyte Esterase Large (NEGATIVE) Urine RBC 31 /HPF (0-2/HPF) Urine WBC 169 /HPF (0-5/HPF) Urine Squamous Epithelial Cells None /LPF (</=FEW) Urine Amorphous Crystals Few /HPF Urine Bacteria Negative /HPF (NONE-FEW) Urine Mucus None /HPF (NONE-FEW) Urine Yeast (Budding) Moderate /HPF EKG/Imaging EKG Interpretation 12 lead EKG: Time of EKG 1325. Rhythm: Normal sinus rhythm, ventricular rate 87 BPM. [place]: normal QRS: normal ST segments: No ST depression or elevation identified. No significant changes from the 07/27/2016 EKG. 12 lead EKG: Repeat EKG 1634. Rhythm: Normal sinus rhythm, ventricular rate 76 bpm. [place]: normal QRS: normal ST segments: No ST depression or elevation identified. No changes from the previous EKG. Imaging PATIENT NAME: Thea Snyder : 1960 MR: [id number] V: [id number] EXAM DATE: [id number] ORDERING PHYSICIAN: BRIANDA NEVAREZ TECHNOLOGIST: Location: [facility] Patient: Thea Snyder : 1960 Visit/Account:[id number] Date of Sevice: 09/29/2018 EXAMINATION: CT head without IV contrast HISTORY: Confusion. TECHNIQUE: Axial CT images of the head were obtained from the vertex to the skull base without IV contrast, with coronal and sagittal 2D reconstructed images. One of the following dose optimization techniques was utilized in the performance of this exam: Automated exposure control; adjustment of the mA and/or kV according to the patient's size; or use of an iterative reconstruction technique. Specific details can be referenced in the facility's radiology CT exam operational policy. COMPARISON: None. FINDINGS: The intracranial contents are unremarkable. No CT evidence of intracranial hemorrhage, mass lesion, or acute infarct. No midline shift or extra-axial fluid collections. Beatty-white differentiation is maintained. The calvarium is intact. The visualized paranasal sinuses and mastoid air cells are unopacified. IMPRESSION: No CT evidence of acute intracranial pathology. Report Dictated By: Santosh Lilly MD at 09/29/2018 3:36 PM Report E-Signed By: Santosh Lilly MD at 09/29/2018 3:37 PM WSN:[id number] PATIENT NAME: Thea Snyder : 1960 MR: [id number] V: [id number] EXAM DATE: ORDERING PHYSICIAN: BRIANDA NEVAREZ TECHNOLOGIST: Location: [facility] Patient: Thea Snyder : 1960 Visit/Account:[id number] Date of Sevice: 09/29/2018 CT ABDOMEN PELVIS W/ CON HISTORY: abdominal pain, flank pain bilat TECHNIQUE: Following administration of IV contrast contiguous axial images acquired through the abdomen/pelvis. Coronal and sagittal reformatting also performed.Dose Lowering Technique One of the following dose optimization techniques was utilized in the performance of this exam: Automated exposure control; adjustment of the mA and/or kV according to the patient's size; or use of an iterative reconstruction technique. Specific details can be referenced in the facility's radiology CT exam operational policy. CONTRAST: 75 mL Isovue-370 COMPARISON: March 06, 2010 FINDINGS: Visualized lung bases: There are tiny bilateral pleural effusions and a small amount of atelectasis in the lower lobes . There are coronary artery stents/calcifications and calcination mitral annulus. There is a small pericardial effusion Hepatobiliary: . The liver is enlarged measuring 23.8 cm in length Spleen: Negative. Adrenals: There is mild thickening the adrenal glands Pancreas: Negative. Kidneys ureters or bladder: There are extrarenal pelves bilaterally Genitalia: Uterus is markedly enlarged containing multiple heterogeneous masses, the largest measures approximately 11.3 x 11.3 x 10.9 cm and extends to the level the umbilicus.. There is a complex left adnexal mass measuring 7 x 4 x 8.7 cm GI: There is diverticulosis of the left-sided the colon although no CT evidence of acute diverticulitis . Vessels/spaces/nodes: There shotty retroperitoneal lymph nodes Bones/soft tissues: There is a large periumbilical hernia containing fat. There are mild spondylotic changes of the thoracolumbar spine Additional findings: None pertinent. IMPRESSION: Uterus is markedly enlarged containing multiple heterogeneous enlarged masses extending to the level the umbilicus. There is also complex large left adnexal mass. Pelvic ultrasound recommended. Diverticulosis of the left side of the colon although no CT evidence of acute diverticulitis Large periumbilical hernia containing fat Hepatomegaly Small pericardial effusion Tiny bilateral pleural effusions and small amount of atelectasis lower lobes Report Dictated By: Miracle Tang MD at 09/29/2018 3:26 PM Report E-Signed By: Miracle Tang MD at 09/29/2018 3:41 PM [id number] PATIENT NAME: Thea Snyder : 1960 MR: [id number] V: [id number] EXAM DATE: ORDERING PHYSICIAN: BRIANDA NEVAREZ TECHNOLOGIST: Location: [facility] Patient: Thea Snyder : 1960 Visit/Account:[id number] Date of Sevice: 09/29/2018 CT CTA CHEST W & W/O CON HISTORY: eval for pe, sob and elevated dimer ADDITIONAL HISTORY: None. TECHNIQUE: CTA chest with intravenous contrast. Axial imaging acquired following administration of IV contrast timed for maximum opacification of the pulmonary arterial vasculature. Slab 3-D MIP reconstructed images were also created for further evaluation and interpretation. Reconstruction of the source data set includes multiplanar 2-D in the sagittal and coronal planes and 3-D reconstructed coronal slab MIP series. 3-D images were created by the technologist.Dose Lowering Technique One of the following dose optimization techniques was utilized in the performance of this exam: Automated exposure control; adjustment of the mA and/or kV according to the patient's size; or use of an iterative reconstruction technique. Specific details can be referenced in the facility's radiology CT exam operational policy. CONTRAST: 75 mL Isovue-370 COMPARISON: None. FINDINGS: Lungs/pleura: There is a small amount of airspace consolidation in the posterior sulci of both lower lobes likely representing compressive atelectasis. There are tiny posterior layering bilateral pleural effusions Heart/vessels: Negative. There are no filling defects seen in the pulmonary arteries worrisome for a pulmonary embolus. There is a small pericardial effusion. There are coronary artery calcifications/stents. There calcifications of the mitral annulus. There is mild cardiomegaly Mediastinum/lymph nodes: Negative. Visualized upper abdomen: The liver is incompletely imaged although is enlarged Bones/soft tissues: Mild spondylotic changes of the thoracic spine and moderate spondylotic changes of the visualized lower cervical spine Additional findings: None IMPRESSION: No evidence of pulmonary emboli Small amount of airspace consolidation in the posterior sulci of both lower lobes likely representing compressive atelectasis Tiny posterior layering bilateral pleural effusions Small pericardial effusion Coronary artery calcification/stents Mild cardiomegaly Hepatomegaly Report Dictated By: Miracle Tang MD at 09/29/2018 3:49 PM Report E-Signed By: Miracle Tang MD at 09/29/2018 3:54 PM [id number] Course/Re-evaluation Clinical Indication for ER IV: Hydration, IV Access ED Course The patient was admitted to room. A history and physical obtained. Differential diagnoses were considered. Patient arrives via EMS with IV in place, 2nd IV was started upon arrival. Initial EKG A CBC, CMP, lactate, troponin and d-dimer were obtained.CBC showing white count 12.7 with a left shift, chemistry showing BUN 23, creatinine 1.2, glucose 252, initial troponin 0.123, Repeat troponin 0.160. BNP 255 INR 1.11, d-dimer 0.59. UA showing proteinuria, small blood, large leukocyte esterase, urine white blood cells 169, I did send this out for a culture and she is not complaining of urinary symptoms. CTA of the chest is negative for pulmonary embolus, that shows small amount of airspace consolidation in the posterior so currently of both lower lobes representing compressive atelectasis, small bilateral pleural effusions, small pericardial effusion, coronary artery locations and stents, cardiomegaly and hepatomegaly. CT of the abdomen and pelvis showing uterus markedly enlarged containing multiple heterogeneous enlarged masses extending to the level of the umbilicus, there is also a complex large left adnexal mass, pelvic ultrasound recommended, diverticulosis, no diverticulitis, large periumbilical hernia containing fat. Negative head CT. Patient also had some confusion, some increased shortness of b reath and some angioedema, patient thought she was still on enalapril, I did treat her with 125 mg IV site Medrol and 20 mg IV famotidine, the edema around the eyelids has improved as well as around the lips. She does not feel short of breath. I did however recommend a transfer to another facility with the elevated troponin of 0.123. The patient was agreeable. All the patient has remained pain-free while in the emergency department. I did speak with Dr. Hannon, the fagot heater on-call at [facility], he's accepted the patient, patient will be transferred via ground EMS. No additional anti-coagulation at this time, the patient takes Plavix as well as aspirin, with a pericardial effusion, additional anticoagulation at this time will be suspended. 09/29/2018 4:23:19 pm I did review the CT results with the patient's, negative for pulmonary embolus, I did recommend a transfer to another facility with cardiology, patient said that she's been evaluated at [facility] and would prefer [facility]. 09/29/2018 4:43:20 pm I speak with Dr. Hannon, cardiology on-call at [facility], he is accepting the patient. Decision to Disposition Date: September 29, 2018 Decision to Disposition Time: 16:43 Depart Departure Latest Vital Signs Vital Signs Date Time Temp Pulse Resp B/P (MAP) Pulse Ox O2 Delivery O2 Flow Rate FiO2 09/29/18 17:34 74 33 94 09/29/18 17:30 116/73 (87) 09/29/18 13:50 10.0 09/29/18 13:32 99.2 Oxy Mask Impression: Primary Impression: NSTEMI (non-ST elevated myocardial infarction) Additional Impressions: Pericardial effusion Pleural effusion Mass of uterine adnexa Condition: Improved Disposition: XFER TO ACUTE [facility] Problem Qualifiers BRIANDA NEVAREZ AERIAL HURRICANE HUNTER-BC September 29, 2018 13:31
[2018-09-29] MEDS ORDERED: NS(*) 0.9% 1000 ML BAG 1,000 ML IV ONE (13:39)
[2018-09-29] MEDS ORDERED: KRIL500C2 PO (13:49)
[2018-09-29] MEDS ORDERED: FENO160T11 PO (13:49)
[2018-09-29] MEDS ORDERED: EZET10TA41 PO (13:49)
[2018-09-29] MEDS ORDERED: GABA-549 PO (13:49)
[2018-09-29] MEDS ORDERED: CARV25TA78 PO (13:49)
[2018-09-29] MEDS ORDERED: LEVO-3 PO (13:49)
[2018-09-29] MEDS ORDERED: MULT-1335 PO (13:49)
[2018-09-29] MEDS ORDERED: LOSA100T75 PO (13:49)
[2018-09-29] MEDS ORDERED: LEVO75TA73 PO (13:49)
[2018-09-29] MEDS ORDERED: CLOP75TA PO (13:49)
[2018-09-29] MEDS ORDERED: ASPI81TA94 PO (13:49)
[2018-09-29] MEDS ORDERED: ASPI-1017 PO (13:49)
[2018-09-29] MEDS ORDERED: INSU100I30 SQ ×2 (13:49)
[2018-09-29] MEDS ORDERED: INSU100V24 SQ (13:49)
[2018-09-29] MEDS ORDERED: LAMO150T36 PO (13:49)
[2018-09-29] MEDS ORDERED: ATOR40TA24 PO (13:49)
[2018-09-29] MEDS ORDERED: VILA40TA PO (13:49)
[2018-09-29] MEDS ORDERED: GLUC1TAB13 PO (13:49)
[2018-09-29] MEDS ORDERED: EMS LR(*) 1000 ML BAG 1,000 ML IV ONE (14:00)
[2018-09-29] MEDS ORDERED: methylPREDNIS SUCC 125 MG/2ML IVP ONE (14:00)
--- NOTE | 2018-09-29 14:02 | EKG ---
FACILITY: [facility] PATIENT NAME: MARIE LANCASTER : [id number] MR: [id number] V: [id number] EXAM DATE: ORDERING PHYSICIAN: BRIANDA NEVAREZ TECHNOLOGIST: NEDA De Dios Reason : Blood Pressure : / mmHG Vent. Rate : 087 BPM Atrial Rate : 087 BPM P-R Int : 188 ms QRS Dur : 108 ms QT Int : 374 ms P-R-T Axes : 044 -24 089 degrees QTc Int : 450 ms Normal sinus rhythm T wave abnormality, consider lateral ischemia Abnormal ECG When compared with ECG of 27-JUL-2016 13:55, Previous ECG has undetermined rhythm, needs review Confirmed by PRIYA TOWNSEND ([id number]) on 09/29/2018 6:19:42 PM Referred By: Confirmed By:PRIYA TOWNSEND
[2018-09-29 14:03] LABS: PLATELET COUNT, AUTOMATED 246 K/uL (150-450)
[2018-09-29] MEDS ORDERED: FAMOTIDINE(*) 20MG/50ML PREMIX 50 ML IVPB ONE (14:05)
[2018-09-29] MEDS ORDERED: IOPAMIDOL 76% 100 ML INFUS BTL 100 ML ONE (14:05)
[2018-09-29] MEDS ORDERED: NS(*) 0.9% 50 ML BAG 50 ML ONE (14:46)
[2018-09-29 14:47] LABS: INR 1.11
--- NOTE | 2018-09-29 15:42 | RADIOLOGY IMAGING REPORT ---
FACILITY: [facility] [place] PATIENT NAME: Thea Snyder : 1960 MR: [id number] V: [id number] EXAM DATE: ORDERING PHYSICIAN: BRIANDA NEVAREZ [place]CHNOLOG[place]: [place] [facility] [place] : 1960 Visit/Account:[id number] Date of Sevice: 09/29/2018 EXAMINATION: CT head without IV contrast HISTORY: Confusion. TECHNIQUE: Axial CT images of the head were obtained from the vertex to the skull base without IV c ontrast, with coronal and sagittal 2D reconstructed images. One of the following dose optimization techniques was utilized in the performance of this exam: Autom ated exposure control; adjustment of the mA and/or kV according to the patient's size; or use of an i terative reconstruction technique. Specific details can be referenced in the facility's radiology C T exam operational policy. COMPARISON: None. FINDINGS: The intracranial contents are unremarkable. No CT evidence of intracranial hemorrhage, mass lesion, or acute infarct. No midline shift or extra-axial fluid collections. Beatty-white differentiation is maintained. The calvarium is intact. The visualized paranasal sinuses and mastoid air cells are unopacified. IMPRESSION: No CT evidence of acute intracranial pathology. Report Dictated By: Santosh Lilly MD at 09/29/2018 3:36 PM Report E-Signed By: Santosh Lilly MD at 09/29/2018 3:37 PM WSN:[id number]
--- NOTE | 2018-09-29 15:46 | RADIOLOGY IMAGING REPORT ---
FACILITY: [facility] PATIENT NAME: Thea Snyder : 1960 MR: [id number] V: [id number] EXAM DATE: ORDERING PHYSICIAN: BRIANDA NEVAREZ TECHNOLOGIST: Location: [facility] [place] Patient: Thea Snyder : 1960 Visit/Account:[id number] Date of Sevice: 09/29/2018 CT ABDOMEN PELVIS W/ CON HISTORY: abdominal pain, flank pain bilat TECHNIQUE: Following administration of IV contrast contiguous axial images acquired through the abdom en/pelvis. Coronal and sagittal reformatting also performed.Dose Lowering Technique One of the following dose optimization techniques was utilized in the performance of this exam: Autom ated exposure control; adjustment of the mA and/or kV according to the patient's size; or use of an i terative reconstruction technique. Specific details can be referenced in the facility's radiology C T exam operational policy. CONTRAST: 75 mL Isovue-370 COMPARISON: March 06, 2010 FINDINGS: Visualized lung bases: There are tiny bilateral pleural effusions and a small amount of atelectasis in the lower lobes . There are coronary artery stents/calcifications and calcination mitral annulus . There is a small pericardial effusion Hepatobiliary: . The liver is enlarged measuring 23.8 cm in length Spleen: Negative. Adrenals: There is mild thickening the adrenal glands Pancreas: Negative. Kidneys ureters or bladder: There are extrarenal pelves bilaterally Genitalia: Uterus is markedly enlarged containing multiple heterogeneous masses, the largest measure s approximately 11.3 x 11.3 x 10.9 cm and extends to the level the umbilicus.. There is a complex left adnexal mass measuring 7 x 4 x 8.7 cm GI: There is diverticulosis of the left-sided the colon although no CT evidence of acute diverticuli tis . Vessels/spaces/nodes: There shotty retroperitoneal lymph nodes Bones/soft tissues: There is a large periumbilical hernia containing fat. There are mild spondyloti c changes of the thoracolumbar spine Additional findings: None pertinent. IMPRESSION: Uterus is markedly enlarged containing multiple heterogeneous enlarged masses extending to the level the umbilicus. There is also complex large left adnexal mass. Pelvic ultrasound recommended. Diverticulosis of the left side of the colon although no CT evidence of acute diverticulitis Large periumbilical hernia containing fat Hepatomegaly Small pericardial effusion Tiny bilateral pleural effusions and small amount of atelectasis lower lobes Report Dictated By: Miracle Tang MD at 09/29/2018 3:26 PM Report E-Signed By: Miracle Tang MD at 09/29/2018 3:41 PM RIGOBERTON:AMICIVN
--- NOTE | 2018-09-29 15:59 | RADIOLOGY IMAGING REPORT ---
FACILITY: [facility] [place] PATIENT NAME: Thea Snyder : 1960 MR: [id number] V: [id number] EXAM DATE: ORDERING PHYSICIAN: BRIANDA NEVAREZ TECHNOLOGIST: Location: [facility] Patient: Thea Snyder : 1960 Visit/Account:[id number] Date of Sevice: 09/29/2018 CT CTA CHEST W & W/O CON HISTORY: eval for pe, sob and elevated dimer ADDITIONAL HISTORY: None. TECHNIQUE: CTA chest with intravenous contrast. Axial imaging acquired following administration of IV contrast timed for maximum opacification of the pulmonary arterial vasculature. Slab 3-D MIP arminda nstructed images were also created for further evaluation and interpretation. Reconstruction of the [facility] includes multiplanar 2-D in the sagittal and coronal planes and 3-D reconstructed [place] nal slab MIP series. 3-D images were created by the technologist.Dose Lowering Technique One of the following dose optimization techniques was utilized in the performance of this exam: Autom ated exposure control; adjustment of the mA and/or kV according to the patient's size; or use of an i terative reconstruction technique. Specific details can be referenced in the facility's radiology C T exam operational policy. CONTRAST: 75 mL Isovue-370 COMPARISON: None. FINDINGS: Lungs/pleura: There is a small amount of airspace consolidation in the posterior sulci of both lower lobes likely representing compressive atelectasis. There are tiny posterior layering bilateral pleu ral effusions Heart/vessels: Negative. There are no filling defects seen in the pulmonary arteries worrisome for a pulmonary embolus. There is a small pericardial effusion. There are coronary artery calcification s/stents. There calcifications of the mitral annulus. There is mild cardiomegaly Mediastinum/lymph nodes: Negative. Visualized upper abdomen: The liver is incompletely imaged although is enlarged Bones/soft tissues: Mild spondylotic changes of the thoracic spine and moderate spondylotic changes of the visualized lower cervical spine Additional findings: None IMPRESSION: No evidence of pulmonary emboli Small amount of airspace consolidation in the posterior sulci of both lower lobes likely representing compressive atelectasis Tiny posterior layering bilateral pleural effusions Small pericardial effusion Coronary artery calcification/stents Mild cardiomegaly Hepatomegaly Report Dictated By: Miracle Tang MD at 09/29/2018 3:49 PM Report E-Signed By: Miracle Tang MD at 09/29/2018 3:54 PM WSN:[email or web address] CARLOS
--- NOTE | 2018-09-29 16:43 | EKG ---
[place] [facility] [place] NAME: MARIE LANCASTER : [id number] MR: [id number] V: [id number] EXAM DATE: ORDERING PHYSICIAN: BRINADA NEVAREZ TECHNOLOGIST: DANELLE Test Reason : REPEAT Blood Pressure : / mmHG Vent. Rate : 076 BPM Atrial Rate : 076 BPM P-R Int : 196 ms QRS Dur : 108 ms QT Int : 410 ms P-R-T Axes : 055 -33 079 degrees QTc Int : 461 ms Normal sinus rhythm Left axis deviation Prolonged QT Abnormal ECG When compared with ECG of 29-SEP-2018 13:25, No significant change was found Confirmed by PRIYA TOWNSEND ([id number]) on 09/29/2018 6:20:13 PM Referred By: EDU Confirmed By:PRIYA TOWNSEND
[2018-09-29 18:30] VITALS: BP 128/107
== END 2018-09-29 18:40 | disposition short-term general hospital (02) ==
LOC: ER 13:27
DX: I21.4 Non-ST elevation (NSTEMI) myocardial infarction (principal); I31.3 Pericardial effusion (noninflammatory); J90 Pleural effusion, not elsewhere classified; N85.8 Other specified noninflammatory disorders of uterus; E10.40 Type 1 diabetes mellitus with diabetic neuropathy, unspecified; I25.2 Old myocardial infarction; I10 Essential (primary) hypertension; J44.9 Chronic obstructive pulmonary disease, unspecified; K21.9 Gastro-esophageal reflux disease without esophagitis; E03.9 Hypothyroidism, unspecified; E66.01 Morbid (severe) obesity due to excess calories; F44.9 Dissociative and conversion disorder, unspecified; Z77.22 Contact with and (suspected) exposure to environmental tobacco smoke (acute) (chronic); Z95.5 Presence of coronary angioplasty implant and graft; Z79.82 Long term (current) use of aspirin; Z79.899 Other long term (current) drug therapy
CPT/HCPCS: 70450; 71275; 74177; 81001; 82140; 82375; 83605; 83735; 83880; 84443; 84484; 85025; 85379; 85610; 85651; 85730; 86430; 87088; 93005; 96361; 96365; 96375; 99285; G0480; J2930; J7030; J7050; J7120; Q9967; 80320; 82040; 82247; 82310; 82374; 82435; 82565; 82947; 84075; 84132; 84155; 84295; 84450; 84460; 84520

== ENCOUNTER → 2018-09-29 | Outpatient (CLI) | payer MEDICAID ==
[~2018-09-29] MED LIST changes: +ASPI-1017 PO; +ASPI81TA94 PO; +ATOR40TA24 PO; +CARV25TA78 PO; +CLOP75TA PO; +EZET10TA41 PO; +FENO160T11 PO; +GABA-549 PO; +GLUC1TAB13 PO; +INSU100V24 SQ; +KRIL500C2 PO; +LAMO150T36 PO; +LEVO-3 PO; +LEVO75TA73 PO; +LOSA100T75 PO; +MULT-1335 PO
== END ==
LOC: AMB 18:29
DX: I21.4 Non-ST elevation (NSTEMI) myocardial infarction (principal)
CPT/HCPCS: A0425; A0426

== ENCOUNTER → 2018-09-29 | Outpatient (CLI) | payer MEDICAID | LOC: AMB 12:14 | PROVIDERS: ATTEND Nurse Practitioner | DX: R53.1 Weakness (principal); E86.0 Dehydration; R09.02 Hypoxemia | CPT/HCPCS: A0425; A0427 ==

== ENCOUNTER → 2018-10-29 | Outpatient (CLI) | payer MEDICAID ==
[~2018-10-29] MED LIST changes: +ASPI-1017 PO; +ASPI81TA94 PO; +ATOR40TA24 PO; +CARV25TA78 PO; +CLOP75TA PO; +EZET10TA41 PO; +FENO160T11 PO; +GABA-549 PO; +GLUC1TAB13 PO; +INSU100V24 SQ; +KRIL500C2 PO; +LAMO150T36 PO; +LEVO-3 PO; +LEVO75TA73 PO; +LOSA100T75 PO; +MULT-1335 PO
== END ==
LOC: RESP 21:06
PROVIDERS: ATTEND Nurse Practitioner Psychiatric/Mental Health
DX: G47.33 Obstructive sleep apnea (adult) (pediatric) (principal); G47.36 Sleep related hypoventilation in conditions classified elsewhere; G47.61 Periodic limb movement disorder